=== PATIENT | male | born 1985 | race Two or more races ===

== ENCOUNTER 2022-06-25 08:37 | Emergency (ER) | payer SELFPAY ==
[2022-06-25] MEDS ORDERED: CYCLOBENZAPRINE10 MG PO (13:11)
[2022-06-25] MEDS ORDERED: IBUPROFEN600 MG PO (13:11)
== END 2022-06-25 13:45 | disposition home or self-care (01) ==
LOC: ER1 08:37
DX: M25.561 Pain in right knee (principal); E11.9 Type 2 diabetes mellitus without complications; I10 Essential (primary) hypertension
CPT/HCPCS: 73564; 96372; 99283; J1885; J2360